=== PATIENT | female | born 1975 | race Caucasian/White ===

== ENCOUNTER 2017-01-30 00:08 | Emergency (ER) | payer BC, SELFPAY ==
[2017-01-30] MEDS ORDERED: Ondansetron 4 MG/2 ML SDV IVPUSH ONE (00:17)
[2017-01-30] MEDS ORDERED: Ketorolac 30 MG/ML SDV IVPUSH ONE (00:17)
[2017-01-30] MEDS ORDERED: Sodium Chloride 0.9% 1,000 ML IV SCH (01:00)
[2017-01-30] MEDS ORDERED: HYDROmorphone 1 MG/ML Syringe IVPUSH ONE (01:00)
--- NOTE | 2017-01-30 01:17 | EDM.PDOC ---
ED HPI GENERAL MEDICAL PROBLEM - General Chief Complaint: Abdominal Pain Stated Complaint: PT HAS STOMACH PAINS Time Seen by Provider: 01/30/17 00:13 - History of Present Illness INITIAL COMMENTS - FREE TEXT/NARRATIVE: HISTORY AND PHYSICAL: History of present illness: Patient is a 41-year-old white female with a chief complaint of right-sided abdominal pain this came on subacutely she was seen on prior ER visit for abdominal pain was of a different nature she does have history gastric bypass surgery. She's had nausea no vomiting she denies fever chills denies trauma denies vaginal discharge or other concern. Review of systems: As per history of present illness and below otherwise all systems reviewed and negative. Past medical history: As per history of present illness and as reviewed below otherwise noncontributory. Surgical history: As per history of present illness and as reviewed below otherwise noncontributory. Social history: No reported history of drug or alcohol abuse. Family history: As per history of present illness and as reviewed below otherwise noncontributory. Physical exam: HEENT: Atraumatic, normocephalic, pupils reactive, negative for conjunctival pallor or scleral icterus, mucous membranes moist, throat clear, neck supple, nontender, trachea midline. Lungs: Clear to auscultation, breath sounds equal bilaterally, chest nontender. Heart: S1S2, regular, negative for clicks, rubs, or JVD. Abdomen: Soft, nondistended, nontender. Negative for masses or hepatosplenomegaly. Mild right-sided costovertebral tenderness. Pelvis: Stable nontender. Genitourinary: Deferred. Rectal: Deferred. Extremities: Atraumatic, negative for cords or calf pain. Neurovascular unremarkable. Neuro: Awake, alert, oriented. Cranial nerves II through XII unremarkable. Cerebellum unremarkable. Motor and sensory unremarkable throughout. Exam nonfocal. Diagnostics: CBC CMP UA CT abdomen and pelvis Therapeutics: Normal saline 1 L bolus Toradol 30 mg IV Zofran 4 mg IV Dilaudid 1 mg IV Impression: #1 right-sided abdominal/flank Definitive disposition and diagnosis as appropriate pending reevaluation and review of above. Right Lower Abdominal Pain Score (Numeric/FACES): 9 - Related Data Allergies Allergy/AdvReac Type Severity Reaction Status Date / Time codeine Allergy Vomiting Verified 01/30/17 00:09 Home Meds: Home Meds Armodafinil [Nuvigil] 1 tab PO DAILY PRN 12/28/16 [History] Biotin 1 tab PO DAILY 12/28/16 [History] Calcium Carbonate [Calcium] 800 mg PO DAILY 12/28/16 [History] Cyanocobalamin (Vitamin B-12) [Vitamin B-12] 1 tab PO BID 12/28/16 [History] Cyclobenzaprine HCl [Amrix] 1 tab PO DAILY 12/28/16 [History] Gabapentin [Neurontin] 1 tab PO TID 12/28/16 [History] Magnesium 1 tab PO DAILY 12/28/16 [History] Melatonin 1 cap PO DAILY 12/28/16 [History] Mirabegron [Myrbetriq] 1 tab PO DAILY 12/28/16 [History] Omeprazole 1 tab PO DAILY 12/28/16 [History] Ondansetron [Zofran ODT] 1 tab PO DAILY PRN 12/28/16 [History] SUMAtriptan [Imitrex] 1 tab PO DAILY PRN 12/28/16 [History] Multivitamin [Multi-Vitamin Daily] 1 tab PO DAILY 01/30/17 [History] Past Medical History Respiratory History: Reports: PE Musculoskeletal History: Reports: Fibromyalgia Neurological History: Reports: CVA - Infectious Disease History Infectious Disease History: Reports: None - Past Surgical History HEENT Surgical History: Reports: Tonsillectomy GI Surgical History: Reports: Bariatric procedure Female Surgical History: Reports: Hysterectomy Social & Family History - Family History Family Medical History: Noncontributory - Tobacco Use Smoking Status *Q: Never Smoker - Caffeine Use Caffeine Use: Reports: None - Recreational Drug Use Recreational Drug Use: No ED ROS GENERAL - Review of Systems Review Of Systems: ROS reveals no pertinent complaints other than HPI. ED EXAM, GENERAL - Physical Exam Exam: See Below (See dictation) Course - Vital Signs Last Recorded V/S: Last Vital Signs Temp 36.6 C 01/30/17 00:10 Pulse 89 01/30/17 00:10 Resp 16 01/30/17 00:10 BP 176/95 H 01/30/17 00:10 Pulse Ox 99 01/30/17 00:10 - Orders/Labs/Meds Orders: Active Orders 24 hr Category Date Time Status Abdomen Pelvis wo Cont [CT] Stat Exams 01/30/17 00:16 Taken Sodium Chloride 0.9% [Normal Saline] 1,000 ml Med 01/30/17 01:00 Active IV ASDIRECTED Medication Orders Sodium Chloride (Normal Saline) 1,000 mls @ 999 mls/hr IV ASDIRECTED SILVIO Last Admin: 01/30/17 01:08 Dose: 999 mls/hr Labs: Laboratory Tests 01/30/17 01/30/17 01/30/17 Range/Units 00:20 00:20 00:45 WBC 7.52 (4.0-11.0) K/uL RBC 4.88 (4.30-5.90) M/uL Hgb 13.5 (12.0-16.0) g/dL Hct 42.2 (36.0-46.0) % MCV 86.5 (80.0-98.0) fL MCH 27.7 (27.0-32.0) pg MCHC 32.0 (31.0-37.0) g/dL RDW Std Deviation 46.5 (28.0-62.0) fl RDW Coeff of Manjit 15 (11.0-15.0) % Plt Count 273 (150-400) K/uL MPV 10.20 (7.40-12.00) fL Neut % (Auto) 51.6 (48.0-80.0) % Lymph % (Auto) 39.6 (16.0-40.0) % [place] % (Auto) 6.5 (0.0-15.0) % Eos % (Auto) 1.9 (0.0-7.0) % Baso % (Auto) 0.4 (0.0-1.5) % Neut # 3.9 (1.4-5.7) K/uL Lymph # 3.0 H (0.6-2.4) K/uL [place] # 0.5 (0.0-0.8) K/uL Eos # 0.1 (0.0-0.7) K/uL Baso # 0.0 (0.0-0.1) K/uL Nucleated RBC % 0.0 /100WBC Nucleated RBCs # 0 K/uL Sodium (136-146) mmol/L Potassium (3.5-5.1) mmol/L Chloride (98-110) mmol/L Carbon Dioxide (21-31) mmol/L BUN (6.0-23.0) mg/dL Creatinine (0.6-1.5) mg/dL Est Cr Clr Drug Dosing mL/min Estimated GFR (MDRD) ml/min Glucose (60-110) mg/dL Calcium (8.8-10.8) mg/dL Total Bilirubin (0.1-1.5) mg/dL AST (5-40) IU/L ALT (8-54) IU/L Alkaline Phosphatase (40-150) Total Protein (6.0-8.0) g/dL Albumin (3.5-5.0) g/dL Globulin (2.0-3.5) g/dL Albumin/Globulin Ratio (1.3-2.8) Lipase (7-80) U/L Urine Color YELLOW Urine Appearance SLT CLOUDY Urine pH 5.5 (5.0-8.0) Ur Specific [place] >= 1.030 (1.001-1.035) Urine Protein TRACE (NEGATIVE) mg/dL Urine Glucose (UA) NEGATIVE (NEGATIVE) mg/dL Urine Ketones 40 H (NEGATIVE) mg/dL Urine Occult Blood LARGE H (NEGATIVE) Urine Nitrite NEGATIVE (NEGATIVE) Urine Bilirubin NEGATIVE (NEGATIVE) Urine Urobilinogen 0.2 (<2.0) EU/dL Ur Leukocyte Esterase TRACE (NEGATIVE) Urine RBC 50-60 (0-2/HPF) Urine WBC 2-8 (0-5/HPF) Ur Epithelial Cells FEW (NONE-FEW) Calcium Oxalate Crystal FEW (NEGATIVE) Urine Bacteria FEW (NEGATIVE) Urine Opiates Screen NEGATIVE (NEGATIVE) Ur Oxycodone Screen NEGATIVE (NEGATIVE) Urine Methadone Screen NEGATIVE (NEGATIVE) Ur Barbiturates Screen NEGATIVE (NEGATIVE) Ur Phencyclidine Scrn NEGATIVE (NEGATIVE) Ur Amphetamine Screen NEGATIVE (NEGATIVE) U Methamphetamines Scrn NEGATIVE (NEGATIVE) U Benzodiazepines Scrn NEGATIVE (NEGATIVE) U Cocaine Metab Screen NEGATIVE (NEGATIVE) U Marijuana (THC) Screen NEGATIVE (NEGATIVE) 01/30/17 Range/Units 00:45 WBC (4.0-11.0) K/uL RBC (4.30-5.90) M/uL Hgb (12.0-16.0) g/dL Hct (36.0-46.0) % MCV (80.0-98.0) fL MCH (27.0-32.0) pg MCHC (31.0-37.0) g/dL RDW Std Deviation (28.0-62.0) fl RDW Coeff of Manjit (11.0-15.0) % Plt Count (150-400) K/uL MPV (7.40-12.00) fL Neut % (Auto) (48.0-80.0) % Lymph % (Auto) (16.0-40.0) % [place] % (Auto) (0.0-15.0) % Eos % (Auto) (0.0-7.0) % Baso % (Auto) (0.0-1.5) % Neut # (1.4-5.7) K/uL Lymph # (0.6-2.4) K/uL [place] # (0.0-0.8) K/uL Eos # (0.0-0.7) K/uL Baso # (0.0-0.1) K/uL Nucleated RBC % /100WBC Nucleated RBCs # K/uL Sodium 146 (136-146) mmol/L Potassium 3.4 L (3.5-5.1) mmol/L Chloride 110 (98-110) mmol/L Carbon Dioxide 24 (21-31) mmol/L BUN 10 (6.0-23.0) mg/dL Creatinine 0.8 (0.6-1.5) mg/dL Est Cr Clr Drug Dosing 79.11 mL/min Estimated GFR (MDRD) > 60.0 ml/min Glucose 134 H (60-110) mg/dL Calcium 9.3 (8.8-10.8) mg/dL Total Bilirubin 0.4 (0.1-1.5) mg/dL AST 17 (5-40) IU/L ALT 15 (8-54) IU/L Alkaline Phosphatase 101 (40-150) Total Protein 7.0 (6.0-8.0) g/dL Albumin 4.1 (3.5-5.0) g/dL Globulin 2.9 (2.0-3.5) g/dL Albumin/Globulin Ratio 1.4 (1.3-2.8) Lipase 45 (7-80) U/L Urine Color Urine Appearance Urine pH (5.0-8.0) Ur Specific [place] (1.001-1.035) Urine Protein (NEGATIVE) mg/dL Urine Glucose (UA) (NEGATIVE) mg/dL Urine Ketones (NEGATIVE) mg/dL Urine Occult Blood (NEGATIVE) Urine Nitrite (NEGATIVE) Urine Bilirubin (NEGATIVE) Urine Urobilinogen (<2.0) EU/dL Ur Leukocyte Esterase (NEGATIVE) Urine RBC (0-2/HPF) Urine WBC (0-5/HPF) Ur Epithelial Cells (NONE-FEW) Calcium Oxalate Crystal (NEGATIVE) Urine Bacteria (NEGATIVE) Urine Opiates Screen (NEGATIVE) Ur Oxycodone Screen (NEGATIVE) Urine Methadone Screen (NEGATIVE) Ur Barbiturates Screen (NEGATIVE) Ur Phencyclidine Scrn (NEGATIVE) Ur Amphetamine Screen (NEGATIVE) U Methamphetamines Scrn (NEGATIVE) U Benzodiazepines Scrn (NEGATIVE) U Cocaine Metab Screen (NEGATIVE) U Marijuana (THC) Screen (NEGATIVE) Meds: Medications Generic Name Dose Route Start Last Admin Trade Name Freq PRN Reason Stop Dose Admin Sodium Chloride 1,000 mls @ 999 mls/hr 01/30/17 01:00 01/30/17 01:08 Normal Saline IV 999 mls/hr ASDIRECTED SILVIO Administration Discontinued Medications Generic Name Dose Route Start Last Admin Trade Name Freq PRN Reason Stop Dose Admin Hydromorphone HCl 1 mg 01/30/17 01:00 01/30/17 01:09 Dilaudid IVPUSH 01/30/17 01:01 1 mg ONETIME ONE Administration Ketorolac Tromethamine 30 mg 01/30/17 00:17 01/30/17 00:49 Toradol IVPUSH 01/30/17 00:18 30 mg ONETIME ONE Administration Ondansetron HCl 4 mg 01/30/17 00:17 01/30/17 00:50 Zofran IVPUSH 01/30/17 00:18 4 mg ONETIME ONE Administration Departure - Departure Time of Disposition: 01:58 Disposition: Home, Self-Care 01 Condition: good Clinical Impression: Kidney stone Forms: ED Department Discharge Additional Instructions: The following information is given to patients seen in the emergency department who are being discharged to home. This information is to outline your options for follow-up care. We provide all patients seen in our emergency department with a follow-up referral. The need for follow-up, as well as the timing and circumstances, are variable depending upon the specifics of your emergency department visit. If you don't have a primary care physician on staff, we will provide you with a referral. We always advise you to contact your personal physician following an emergency department visit to inform them of the circumstance of the visit and for follow-up with them and/or the need for any referrals to a consulting specialist. The emergency department will also refer you to a specialist when appropriate. This referral assures that you have the opportunity for followup care with a specialist. All of these measure are taken in an effort to provide you with optimal care, which includes your followup. Under all circumstances we always encourage you to contact your private physician who remains a resource for coordinating your care. When calling for followup care, please make the office aware that this follow-up is from your recent emergency room visit. If for any reason you are refused follow-up, please contact the [facility] emergency department at and asked to speak to the emergency department charge nurse. [facility] - Urology [address] [place] [id number] Hydrocodone Zofran Flomax as prescribed follow up primary medical doctor/ urology 2440 hours push fluids return as needed as discussed - My Orders Last 24 Hours: My Active Orders 01/30/17 00:16 Abdomen Pelvis wo Cont [CT] Stat 01/30/17 01:00 Sodium Chloride 0.9% [Normal Saline] 1,000 ml IV ASDIRECTED - Assessment/Plan Last 24 Hours: My Active Orders 01/30/17 00:16 Abdomen Pelvis wo Cont [CT] Stat 01/30/17 01:00 Sodium Chloride 0.9% [Normal Saline] 1,000 ml IV ASDIRECTED
[2017-01-30 01:25] LABS: CHLORIDE,CL 110 mmol/L (98-110); SODIUM,NA 146 mmol/L (136-146)
[2017-01-30 02:54] VITALS: BP 158/87
--- NOTE | 2017-01-31 10:51 | CT ---
EXAM DATE: 01/30/17 PATIENT'S AGE: 41 Patient: RENE LAZARO Facility: [place], [place] Site . Site : [id number] Study: CT Abdomen/Pelvis [id number]/[id number] 12:41:49 AM Ordering Physician: Monica Pearson Final Report: INDICATION: Abdominal pain TECHNIQUE: CT abdomen and pelvis without i.v. contrast. Coronal and sagittal reformats were obtained. COMPARISON: 12/28/2016 FINDINGS: Lower chest: Mild scarring seen in the left lateral lung base. Liver: A 1.2 cm cyst is present within the right anterior segment of the liver ( segment 5). Spleen: Unremarkable. Pancreas: Unremarkable. Gallbladder and bile ducts: Unremarkable. Kidneys: There is a 1-2 mm stone present in the right bladder trigone with mild right hydroureter and right renal pelviectasis seen. The left kidney and ureter are unremarkable in appearance. Adrenal glands: Unremarkable. GI tract: The patient is status post antegastric-antecolic gastric bypass. No definite obstruction of the biliopancreatic limb or Germain-en-Y loop seen. The appendix cannot be identified but there are no inflammatory changes noted in the right lower quadrant. Vascular: Unremarkable. Lymph nodes: Unremarkable. Miscellaneous: Ground-glass infiltration outlining a lobule of fat is again noted in the left upper quadrant without interval change. No pneumoperitoneum is seen. No significant ascites is noted. Pelvic Organs: Unremarkable. The patient is status post prior hysterectomy. Bones: Unremarkable for age. IMPRESSION: 1. There is a 1-2 mm stone present in the right bladder trigone with mild right hydroureter and right renal pelviectasis seen. Dictated by Curry Parker MD @ 01/30/2017 12:55:36 AM Dictated by: Curry Parker MD @ 01/30/2017 00:55:45 (Electronic Signature) Report Signed by Proxy and Original Signed Document filed in the Medical Record. [facility]
== END 2017-01-30 02:54 | disposition home or self-care (01) ==
LOC: MW.ED 00:08
DX: N20.0 Calculus of kidney (principal); Z88.5 Allergy status to narcotic agent; Z79.899 Other long term (current) drug therapy; Z90.710 Acquired absence of both cervix and uterus; Z98.84 Bariatric surgery status
CPT/HCPCS: 74176; 80053; 80305; 81001; 83690; 85025; 96361; 96374; 96375; 99284; J1170; J1885; J2405; J7040